=== PATIENT | female | born 1950 | race Hispanic/Latino ===

== ENCOUNTER 2022-01-17 15:15 | Inpatient (IN) | payer MEDICARE ==
[~2022-01-17] VITALS: Ht 149.9 cm; Wt 78.5 kg
[2022-01-17] MEDS ORDERED: SODIUM CHLORIDE 0.9% 500ML 500 ML IV ONE (15:30)
[2022-01-17 15:44] LABS: BASOPHILS # (AUTO) 0.1 (0.0-0.1); BASOPHILS % 0.9 % (0.0-1.0); EOSINOPHILS # (AUTO) 0.3 (0.0-0.4); HEMATOCRIT 32.2 % (34.2-44.1); HEMOGLOBIN 10.3 g/dL (12.0-16.0); LYMPHOCYTES % 34.9 % (18.0-39.1); MONOCYTES # (AUTO) 0.5 (0.2-0.8); MONOCYTES % 8.8 % (4.4-11.3); NEUTROPHILS # (AUTO) 2.8 (2.1-6.9); PLATELET COUNT 323 x10e3/uL (140-360); RED BLOOD COUNT 3.32 x10e6/uL (3.6-5.1); RED CELL DISTRIBUTION WIDTH 13.2 % (11.7-14.4)
[2022-01-17] MEDS ORDERED: MEROPENEM 1 GM in SODIUM CHLORIDE 0.9% 100 ML IV ONE (15:45)
[2022-01-17] MEDS ORDERED: ONDANSETRON HCL INJ 2MG/ML 2ML 2 MG/ML VIAL IV PRN (15:45)
[2022-01-17 16:00] LABS: ALBUMIN 3.8 g/dL (3.5-5.0); CALCIUM 9.2 mg/dL (8.4-10.2); CREATININE, SERUM 1.03 mg/dL (0.57-1.11)
[2022-01-17 16:12] LABS: CLARITY,URINE HAZY (CLEAR); COLOR,URINE YELLOW (YELLOW); KETONES,URINE NEGATIVE (NEGATIVE); LEUKOCYTE ESTERASE ,URINE LARGE (NEGATIVE); NITRITE,URINE NEGATIVE (NEGATIVE); PROTEIN,URINE DIPSTICK NEGATIVE (NEGATIVE); URINE UROBILINOGEN 0.2 mg/dL (0.2 - 1)
[2022-01-17 16:21] LABS: BACTERIA,URINE MODERATE /HPF; WBC,URINE (MAN) >50 /HPF (0-5)
[2022-01-17] MEDS: ACETAMINOPHEN 325 MG TAB PO PRN ×2 (16:23→22:35)
[2022-01-17 17:47] VITALS: BP 121/84
[2022-01-17 17:51] VITALS: BP 121/84
[2022-01-17 18:00] VITALS: BP 121/84
[2022-01-17 20:00] VITALS: BP 135/87
[2022-01-17] MEDS ORDERED: BENICAR5 MG PO (21:36)
[2022-01-17] MEDS ORDERED: ALENDRONATE SOD70 MG PO (21:36)
[2022-01-17] MEDS ORDERED: METHENAMINE HIPP1 GM PO (21:36)
[2022-01-17] MEDS ORDERED: FENOFIBRATE145 MG PO (21:36)
[2022-01-18] VITALS: BP 90/56
[2022-01-18 04:00] VITALS: BP 105/64
[2022-01-18] MEDS: MEROPENEM 1 GM in SODIUM CHLORIDE 0.9% 100 ML IV SCH ×2 (04:21→17:37)
[2022-01-18] MEDS ORDERED: SODIUM CHLORIDE 0.9% 250ML 250 ML ONE (04:22)
[2022-01-18 06:10] LABS: BASOPHILS % 0.8 % (0.0-1.0); EOSINOPHILS # (AUTO) 0.4 (0.0-0.4); EOSINOPHILS % 8.9 % (0.0-6.0); LYMPHOCYTES # (AUTO) 1.7 (1.0-3.2); LYMPHOCYTES % 34.6 % (18.0-39.1); MEAN CORPUSCULAR HEMOGLOBIN 30.3 pg (28-32); MEAN CORPUSCULAR VOLUME 97.6 fL (81-99); MONOCYTES # (AUTO) 0.7 (0.2-0.8); MONOCYTES % 13.7 % (4.4-11.3); NEUTROPHILS # (AUTO) 2.1 (2.1-6.9); NEUTROPHILS % 41.6 % (38.7-80.0); PLATELET COUNT 270 x10e3/uL (140-360); RED BLOOD COUNT 2.97 x10e6/uL (3.6-5.1); RED CELL DISTRIBUTION WIDTH 13.1 % (11.7-14.4)
[2022-01-18 06:35] LABS: ALBUMIN 3.2 g/dL (3.5-5.0); ALBUMIN/GLOBULIN RATIO 1.1 (0.8-2.0); ANION GAP 9.8 mmol/L (8-16); CALCIUM 8.5 mg/dL (8.4-10.2); CREATININE, SERUM 0.89 mg/dL (0.57-1.11); POTASSIUM 3.8 mmol/L (3.5-5.1)
[2022-01-18 07:36] VITALS: BP 100/57
[2022-01-18 11:53] VITALS: BP 131/79
[2022-01-18 15:46] VITALS: BP 130/68
[2022-01-18] MEDS: ENOXAPARIN SOD INJ 40 MG/0.4 ML SYR SC SCH (17:00)
[2022-01-18 20:00] VITALS: BP_SYST 135; BP_SYST 96; BP_DIAS 53; BP_DIAS 86
[2022-01-19] VITALS (7 sets, daily range): BP systolic 102–142; BP diastolic 63–90
[2022-01-19] MEDS: MEROPENEM 1 GM in SODIUM CHLORIDE 0.9% 100 ML IV SCH ×2 (05:51→16:23)
[2022-01-19] MEDS ORDERED: SIMETHICONE 80 MG CHEW PO PRN (15:15)
[2022-01-19] MEDS ORDERED: ONDANSETRON HCL 4 MG ORAL DISINTEGRATING TAB PO PRN (15:30)
[2022-01-19] MEDS: POLYETHYLENE GLYCOL 3350 17 GM PACK PO SCH (16:23)
[2022-01-19] MEDS: ENOXAPARIN SOD INJ 40 MG/0.4 ML SYR SC SCH ×2 (16:24→17:00)
[2022-01-19] MEDS: DOCUSATE SODIUM 100 MG CAP PO SCH (21:00)
[2022-01-20] VITALS (7 sets, daily range): BP systolic 91–127; BP diastolic 50–78
[2022-01-20] MEDS: MEROPENEM 1 GM in SODIUM CHLORIDE 0.9% 100 ML IV SCH ×2 (04:00→16:34)
[2022-01-20 06:03] LABS: BASOPHILS # (AUTO) 0.1 (0.0-0.1); EOSINOPHILS # (AUTO) 0.5 (0.0-0.4); EOSINOPHILS % 8.8 % (0.0-6.0); HEMATOCRIT 30.1 % (34.2-44.1); HEMOGLOBIN 9.7 g/dL (12.0-16.0); LYMPHOCYTES % 39.2 % (18.0-39.1); MEAN CORPUSCULAR HEMOGLOBIN 31.1 pg (28-32); MEAN CORPUSCULAR HGB CONC 32.2 g/dL (31-35); MEAN CORPUSCULAR VOLUME 96.5 fL (81-99); MONOCYTES # (AUTO) 0.6 (0.2-0.8); MONOCYTES % 11.9 % (4.4-11.3); NEUTROPHILS % 38.7 % (38.7-80.0); PLATELET COUNT 285 x10e3/uL (140-360); RED BLOOD COUNT 3.12 x10e6/uL (3.6-5.1); RED CELL DISTRIBUTION WIDTH 13.3 % (11.7-14.4)
[2022-01-20 06:27] LABS: ANION GAP 11.3 mmol/L (8-16); CALCIUM 8.8 mg/dL (8.4-10.2); CREATININE, SERUM 0.82 mg/dL (0.57-1.11); MAGNESIUM 2.1 MG/DL (1.3-2.1); PHOSPHORUS 3.1 MG/DL (2.3-4.7); POTASSIUM 4.3 mmol/L (3.5-5.1)
[2022-01-20] MEDS: ACETAMINOPHEN 325 MG TAB PO PRN (07:52)
[2022-01-20] MEDS: DOCUSATE SODIUM 100 MG CAP PO SCH ×3 (08:43→21:14)
[2022-01-20] MEDS: POLYETHYLENE GLYCOL 3350 17 GM PACK PO SCH ×2 (08:43→16:34)
[2022-01-20] MEDS: ENOXAPARIN SOD INJ 40 MG/0.4 ML SYR SC SCH (16:35)
[2022-01-21] VITALS (8 sets, daily range): BP systolic 85–124; BP diastolic 50–76
[2022-01-21] MEDS: MEROPENEM 1 GM in SODIUM CHLORIDE 0.9% 100 ML IV SCH ×2 (04:40→16:42)
[2022-01-21] MEDS: DOCUSATE SODIUM 100 MG CAP PO SCH ×3 (08:32→21:10)
[2022-01-21] MEDS: POLYETHYLENE GLYCOL 3350 17 GM PACK PO SCH ×2 (08:32→16:00)
[2022-01-21] MEDS: SODIUM CHLORIDE 0.9% 1000ML 1,000 ML IV SCH ×2 (08:32→21:14)
[2022-01-21] MEDS: ENOXAPARIN SOD INJ 40 MG/0.4 ML SYR SC SCH (16:42)
[2022-01-22] VITALS (8 sets, daily range): BP systolic 95–144; BP diastolic 50–80
[2022-01-22] MEDS: MEROPENEM 1 GM in SODIUM CHLORIDE 0.9% 100 ML IV SCH ×2 (04:49→16:12)
[2022-01-22 06:02] LABS: BASOPHILS % 0.8 % (0.0-1.0); EOSINOPHILS # (AUTO) 0.5 (0.0-0.4); EOSINOPHILS % 10.4 % (0.0-6.0); HEMOGLOBIN 9.6 g/dL (12.0-16.0); LYMPHOCYTES # (AUTO) 2.3 (1.0-3.2); LYMPHOCYTES % 43.8 % (18.0-39.1); MEAN CORPUSCULAR HEMOGLOBIN 30.5 pg (28-32); MEAN CORPUSCULAR VOLUME 98.4 fL (81-99); MONOCYTES # (AUTO) 0.6 (0.2-0.8); MONOCYTES % 11.6 % (4.4-11.3); NEUTROPHILS # (AUTO) 1.7 (2.1-6.9); NEUTROPHILS % 33.2 % (38.7-80.0); PLATELET COUNT 284 x10e3/uL (140-360); RED BLOOD COUNT 3.15 x10e6/uL (3.6-5.1); RED CELL DISTRIBUTION WIDTH 13.2 % (11.7-14.4)
[2022-01-22 06:35] LABS: ANION GAP 10.7 mmol/L (8-16); CALCIUM 8.5 mg/dL (8.4-10.2); CREATININE, SERUM 0.76 mg/dL (0.57-1.11); PHOSPHORUS 2.7 MG/DL (2.3-4.7); POTASSIUM 4.7 mmol/L (3.5-5.1)
[2022-01-22] MEDS: POLYETHYLENE GLYCOL 3350 17 GM PACK PO SCH ×2 (09:04→16:12)
[2022-01-22] MEDS: SODIUM CHLORIDE 0.9% 1000ML 1,000 ML IV SCH ×2 (09:04→23:05)
[2022-01-22] MEDS: DOCUSATE SODIUM 100 MG CAP PO SCH ×3 (09:04→21:00)
[2022-01-22] MEDS: ACETAMINOPHEN 325 MG TAB PO PRN (15:20)
[2022-01-22] MEDS: ENOXAPARIN SOD INJ 40 MG/0.4 ML SYR SC SCH (16:15)
[2022-01-23 00:58] VITALS: BP 115/63
[2022-01-23] MEDS: MEROPENEM 1 GM in SODIUM CHLORIDE 0.9% 100 ML IV SCH ×2 (04:25→12:47)
[2022-01-23 04:49] VITALS: BP 98/62
[2022-01-23 07:57] VITALS: BP 148/82
[2022-01-23 08:34] VITALS: BP 148/82
[2022-01-23] MEDS: DOCUSATE SODIUM 100 MG CAP PO SCH (08:42)
[2022-01-23] MEDS: POLYETHYLENE GLYCOL 3350 17 GM PACK PO SCH (08:42)
[2022-01-23] MEDS ORDERED: ONDANSETRON ODT4 MG PO (10:25)
[2022-01-23] MEDS ORDERED: MEROPENEM1 GM IV (10:25)
[2022-01-23] MEDS ORDERED: SIMETHICONE80 MG PO (10:25)
[2022-01-23] MEDS ORDERED: ACETAMINOPHEN325 M1 PO (10:25)
[2022-01-23] MEDS ORDERED: MIRALAX17 GM PO (10:25)
[2022-01-23] MEDS ORDERED: COLACE100 MG PO (10:25)
[2022-01-23 12:56] VITALS: BP 138/89
[2022-01-23] MEDS: SODIUM CHLORIDE 0.9% 1000ML 1,000 ML IV SCH (13:35)
== END 2022-01-23 14:35 | disposition home health service (06) | DRG 690 ==
LOC: ER 15:22 → ERHOLD 15:32 → MED/SURG3 17:23
PROVIDERS: ADMIT Internal Medicine; ATTEND Internal Medicine
PROC: 02HV33Z Insertion of Infusion Device into Superior Vena Cava, Percutaneous Approach (ICD-10-PCS; principal; 2022-01-18)
DX: N39.0 Urinary tract infection, site not specified (principal); I25.10 Atherosclerotic heart disease of native coronary artery without angina pectoris; I10 Essential (primary) hypertension; E66.9 Obesity, unspecified; Z68.34 Body mass index [BMI] 34.0-34.9, adult; E78.5 Hyperlipidemia, unspecified; Z88.5 Allergy status to narcotic agent; Z88.0 Allergy status to penicillin; Z88.8 Allergy status to other drugs, medicaments and biological substances; B96.1 Klebsiella pneumoniae [K. pneumoniae] as the cause of diseases classified elsewhere; K57.90 Diverticulosis of intestine, part unspecified, without perforation or abscess without bleeding
CPT/HCPCS: 36415; 36569; 71045; 74176; 80048; 80053; 81001; 83735; 84100; 85025; 87040; 87086; 87186; 99251; 99284; J1650; J2185; J2405; J7030; J7040; J7050; U0002